=== PATIENT | female | born 1990 | race American Indian/Alaskan Native ===

== ENCOUNTER 2017-07-15 09:14 | Emergency (ER) | payer OTHER ==
[2017-07-15 09:23] VITALS: BP 92/61; O2SAT 100
[2017-07-15 09:24] VITALS: BMI 22.0
--- NOTE | 2017-07-15 09:53 | C.PDOC ---
History Of Present Illness 26 year old female, otherwise well, presents to the ED with complaints of constipation for approximately 3-4 days. Patient notes a pressure in the rectum with some bleeding when straining to poop, lower abdomen fullness, and discomfort. Patient states she eats a lot of fast food because she is on the go often and does not have time to drink enough water. Upon arrival to ED patient had a hard, large bowel movement and notes improvement of symptoms. Patient denies rectal bleeding with current bowel movement, dysuria, fever, chills, nausea, vomiting, or other complaints at this time. Time Seen by Provider: 07/15/17 09:29 Chief Complaint (Nursing): Abdominal Pain History Per: Patient History/Exam Limitations: no limitations Onset/Duration Of Symptoms: Days (3-4 days ) Current Symptoms Are (Timing): Better Radiation Of Pain To:: None Quality Of Discomfort: Pressure Associated Symptoms: Constipation. denies: Fever, Chills, Nausea, Vomiting, Diarrhea, Urinary Symptoms Exacerbating Factors: None Alleviating Factors: None Last Bowel Movement: Today Recent travel outside of the [place]: No Abnormal Vaginal Bleeding: No Past Medical History Reviewed: Historical Data, Nursing Documentation, Vital Signs Vital Signs: Last Vital Signs Temp 98 F 07/15/17 09:30 Pulse 73 07/15/17 09:30 Resp 20 07/15/17 09:30 BP 92/61 L 07/15/17 09:30 Pulse Ox 100 07/15/17 09:53 - Medical History PMH: Anemia Denies: Chronic Kidney Disease - [facility] Procedures MANUAL ASSIST DELIV NEC (02/11/15) PACKED CELL TRANSFUSION (02/11/15) Family History: States: Unknown Family Hx - Social History Hx Alcohol Use: No Hx Substance Use: No - Immunization History Hx Tetanus Toxoid Vaccination: No Hx Influenza Vaccination: No Hx Pneumococcal Vaccination: No Review Of Systems Constitutional: Negative for: Fever, Sweats Cardiovascular: Negative for: Chest Pain, Palpitations Respiratory: Negative for: Cough, Shortness of Breath Gastrointestinal: Positive for: Constipation, Other (mild rectal bleeding ). Negative for: Nausea, Vomiting, Abdominal Pain, Diarrhea Physical Exam - Physical Exam Appears: Non-toxic, No Acute Distress Skin: Warm, Dry, No Rash Head: Atraumatic, Normacephalic, No Tenderness Eye(s): bilateral: Normal Inspection, PERRL, EOMI Oral Mucosa: Moist Neck: Supple Chest: Symmetrical, No Deformity Cardiovascular: Rhythm Regular, No Murmur Respiratory: No Rales, No Rhonchi, No Wheezing, Other (clear to auscultation bilaterally ) Gastrointestinal/Abdominal: Soft, No Tenderness, No Distention, No Guarding, No Rebound Rectal: Deferred (by patient ) Back: No CVA Tenderness Extremity: Normal ROM, No Tenderness Neurological/Psych: Oriented x3 ED Course And Treatment O2 Sat by Pulse Oximetry: 100 (RA) Pulse Ox Interpretation: Normal Disposition Counseled Patient/Family Regarding: Diagnosis, Need For Followup - Disposition Disposition: HOME/ ROUTINE Disposition Time: 09:52 Condition: STABLE Instructions: Constipation (DC), High Fiber Diet (ED) Forms: [facility] (Northern Irish), General Discharge Instructions - POA Present On Arrival: None - Clinical Impression Clinical Impression: Constipation - Scribe Statement The provider has reviewed the documentation as recorded by the Scribe Lisa Emanuel All medical record entries made by the Scribe were at my direction and personally dictated by me. I have reviewed the chart and agree that the record accurately reflects my personal performance of the history, physical exam, medical decision making, and the department course for this patient. I have also personally directed, reviewed, and agree with the discharge instructions and disposition.
[2017-07-15 10:04] VITALS: PULSE 73; RESP 20; TEMP 98
== END 2017-07-15 10:00 | disposition home or self-care (01) ==
LOC: C.ER 09:14
DX: K59.00 Constipation, unspecified (principal)

== ENCOUNTER 2018-03-12 02:33 | Emergency (ER) | payer OTHER ==
[2018-03-12 02:33] VITALS: BMI 22.0
[2018-03-12 02:42] VITALS: RESP 16
[2018-03-12] MEDS ORDERED: Oxycodone/Acetaminophen 5/325 mg Tab PO STA (02:57)
[2018-03-12] MEDS ORDERED: Oxycodone/Acetaminophen 5/325 mg Tab ONE (03:04)
--- NOTE | 2018-03-12 03:18 | C.PDOC ---
History Of Present Illness 27 year old female with PMHx of wisdom tooth impaction presents to the ED c/o right lower toothache. Patient was seen by her dentist and was advised to have the wisdom tooth extracted but patient has not been able to make an appointment due to time constraints. Patient had been taking motrin 600 with some relief but today she woke up with throbbing pain which prompted the visit. Patient denies fever, chills, nausea, vomit, blurry vision, facial swelling, injury, fall, trauma. Time Seen by Provider: 03/12/18 02:48 Chief Complaint (Nursing): Dental Pain History Per: Patient History/Exam Limitations: no limitations Onset/Duration Of Symptoms: Days Current Symptoms Are (Timing): Still Present Quality: Positive for: "Pain" Recent travel outside of the [place]: No Additional History Per: Patient Past Medical History Reviewed: Historical Data, Nursing Documentation, Vital Signs Vital Signs: Last Vital Signs Temp 97.3 F L 03/12/18 03:36 Pulse 64 03/12/18 03:36 Resp 16 03/12/18 03:36 BP 104/68 03/12/18 03:36 Pulse Ox 99 03/12/18 03:36 - Medical History PMH: Anemia Denies: Chronic Kidney Disease Surgical History: No Surg Hx - [facility] Procedures MANUAL ASSIST DELIV NEC (02/11/15) PACKED CELL TRANSFUSION (02/11/15) Family History: States: Unknown Family Hx - Social History Hx Alcohol Use: Yes Hx Substance Use: No - Immunization History Hx Tetanus Toxoid Vaccination: No Hx Influenza Vaccination: No Hx Pneumococcal Vaccination: No Review Of Systems Constitutional: Negative for: Fever, Chills ENT: Positive for: Mouth Pain. Negative for: Nose Discharge, Nose Congestion, Mouth Swelling Respiratory: Negative for: Cough, Shortness of Breath Gastrointestinal: Negative for: Nausea, Vomiting Musculoskeletal: Negative for: Neck Pain Skin: Negative for: Rash Neurological: Negative for: Headache, Dizziness Physical Exam - Physical Exam Appears: Non-toxic, No Acute Distress Skin: Normal Color, Warm, Dry Head: Atraumatic, Normacephalic Eye(s): bilateral: Normal Inspection Ear(s): Bilateral: Normal Oral Mucosa: Moist Tongue: No Lesions Lips: No Lesions Teeth: Other (impacted right lower moalr ) Gingiva: No Swelling, No Bleeding Throat: Normal, No Erythema, No Exudate Neck: Normal ROM, No Midline Cervical Tenderness, Supple Neurological/Psych: Oriented x3, Normal Speech Gait: Steady ED Course And Treatment O2 Sat by Pulse Oximetry: 98 (ON RA) Pulse Ox Interpretation: Normal Progress Note: Plan: - Percocet 1 tab PO. Patient was advised to follow up with dentist. Disposition Counseled Patient/Family Regarding: Diagnosis, Need For Followup, Rx Given - Disposition Referrals: Dental office, Dentist [Other] Disposition: HOME/ ROUTINE Disposition Time: 03:15 Condition: STABLE Additional Instructions: Please follow up with dentist Continue motrin and may take tyl with codeine for severe pain Return to ER if worse Prescriptions: Acetaminophen/Codeine [Tylenol/Codeine 300 MG/30 MG] 1 - 2 ea PO Q6 PRN #10 tab PRN Reason: Pain, Moderate (4-7) Instructions: Impacted Tooth (DC) Forms: [facility] (Telugu) - Clinical Impression Clinical Impression: Impacted molar - PA / ANESTHESIOLOGY MEDICAL DOCTOR / Resident Statement MD/DO has reviewed & agrees with the documentation as recorded. - Scribe Statement The provider has reviewed the documentation as recorded by the Scribe Nikolay Aragon All medical record entries made by the Romaibbenjamin were at my direction and personally dictated by me. I have reviewed the chart and agree that the record accurately reflects my personal performance of the history, physical exam, medical decision making, and the department course for this patient. I have also personally directed, reviewed, and agree with the discharge instructions and disposition.
[2018-03-12 03:37] VITALS: BP 104/68; PULSE 64; TEMP 97.3
[2018-03-12 04:28] VITALS: O2SAT 98
== END 2018-03-12 03:37 | disposition home or self-care (01) ==
LOC: C.ER 02:33
DX: K01.1 Impacted teeth (principal)

== ENCOUNTER 2018-08-29 17:00 | Emergency (ER) | payer MEDICAID, OTHER ==
[2018-08-29 17:01] VITALS: BMI 22.0
[2018-08-29 17:30] VITALS: PULSE 100; RESP 20; TEMP 98.6; O2SAT 99
--- NOTE | 2018-08-29 18:11 | C.PDOC ---
History Of Present Illness 27 y/o female, , c/o vaginal pain x 3 days with burning sensation when urine touches skin. also feels bump in left groin. no fever, chills, nausea, abdominal pain. vomiting, diarrhea. vagina bleeding or discharge. pt reports unprotected sex with one partner, who has no complaints. Time Seen by Provider: 08/29/18 17:28 Chief Complaint (Nursing): Female Genitourinary Past Medical History Vital Signs: Last Vital Signs Temp 98.6 F 08/29/18 17:18 Pulse 100 H 08/29/18 17:18 Resp 20 08/29/18 17:18 BP Pulse Ox 99 08/29/18 17:18 - Medical History PMH: Anemia Denies: Chronic Kidney Disease - [facility] Procedures MANUAL ASSIST DELIV NEC (02/11/15) PACKED CELL TRANSFUSION (02/11/15) Family History: States: Unknown Family Hx - Social History Hx Alcohol Use: No Hx Substance Use: No - Immunization History Hx Tetanus Toxoid Vaccination: Yes Hx Influenza Vaccination: No Hx Pneumococcal Vaccination: No Review Of Systems Constitutional: Negative for: Fever, Chills Gastrointestinal: Negative for: Nausea, Vomiting, Abdominal Pain, Diarrhea Genitourinary: Positive for: Other (vaginal pain). Negative for: Vaginal Discharge, Vaginal Bleeding Physical Exam - Physical Exam Appears: Non-toxic, No Acute Distress Skin: Warm, Dry Lymphatic: Inguinal Node Tenderness (left groin ) Cardiovascular: Rhythm Regular Respiratory: Normal Breath Sounds Gastrointestinal/Abdominal: Soft, No Tenderness, No Distention Pelvic: No Vaginal Bleeding, Vaginal Discharge (mucus), No Cervical Motion Tenderness, Other (chaperoned by Jennifer: Left external labia: 2 cm coalesce vesicles; scattered vesicles on right labia and unroofed vesicles on perianal area. ) Extremity: Normal ROM (x4) Neurological/Psych: Oriented x3, Normal Speech, Normal Cognition, Normal Motor, Normal Sensation ED Course And Treatment O2 Sat by Pulse Oximetry: 99 (RA) Pulse Ox Interpretation: Normal Medical Decision Making Medical Decision Making: Plans: -- chlamydia -- lidocaine -- ibuprofen -- valtrex -- urine cx -- POC urine -- rapid plasma -- UA pt with vesicular lesions on labia; neg rpr, gc/chlamydia sent. discussed with patient need for further potpatient sti testing. will tx for herpes labialis with valtrex., Disposition Counseled Patient/Family Regarding: Studies Performed, Diagnosis, Need For Followup, Rx Given - Disposition Disposition: HOME/ ROUTINE Disposition Time: 20:26 Condition: GOOD Additional Instructions: Take valacyclovir and ibuprofen as directed. Follow up with gynecology and for further std testing. Recommend no sexual activity until this is cleared up and only safe protected sex. Rturn to ER for any worse symptoms. Prescriptions: Ibuprofen [Motrin Tab] 600 mg PO Q6 #40 tab Lidocaine 2% Gel [Xylocaine 2% (Uro-Jet)] 1 appl TP BID #3 gel Valacyclovir HCl [Valtrex] 1 gm PO BID #20 tablet Instructions: Genital Herpes Forms: [facility] (Portuguese), General Discharge Instructions - Clinical Impression Clinical Impression: Herpes labialis - PA / CROP PEST CONTROL SPECIALIST / Resident Statement MD/ has reviewed & agrees with the documentation as recorded. - Scribe Statement The provider has reviewed the documentation as recorded by the Jacobo Faulkner Do All medical record entries made by the Scribe were at my direction and personally dictated by me. I have reviewed the chart and agree that the record accurately reflects my personal performance of the history, physical exam, medical decision making, and the department course for this patient. I have also personally directed, reviewed, and agree with the discharge instructions and disposition.
[2018-08-29 18:37] LABS: SQUAMOUS EPITHIAL 2 /hpf (0-5); URINE BACTERIA RARE (<OCC); URINE BILIRUBIN NEGATIVE (NEGATIVE); URINE BLOOD 2+ (NEGATIVE); URINE CLARITY Clear (Clear); URINE COLOR Yellow (YELLOW); URINE GLUCOSE (UA) NORMAL (Normal); URINE LEUKOCYTE ESTERASE 1+ Leu/uL (Negative); URINE PROTEIN NEGATIVE (NEGATIVE)
[2018-08-29] MEDS ORDERED: Lidocaine/Prilocaine 2.5%-2.5% Cream (5 gm) TOP STA (18:44)
[2018-08-29] MEDS ORDERED: Lidocaine 2% Jelly (Uro-Jet) TOP STA (18:45)
[2018-08-29 20:20] VITALS: BP 117/77
== END 2018-08-29 20:37 | disposition home or self-care (01) ==
LOC: C.ER 17:00
DX: B00.1 Herpesviral vesicular dermatitis (principal)

== ENCOUNTER 2018-12-10 13:34 | Emergency (ER) | payer MEDICAID ==
[2018-12-10 13:35] VITALS: BMI 22.0
[2018-12-10 13:43] VITALS: BP 117/77; PULSE 104; RESP 20; TEMP 98.2; O2SAT 100
--- NOTE | 2018-12-10 14:01 | C.PDOC ---
History Of Present Illness 28 y/o female c/o body aches, subjective fever, nasal congestion and generalized weakness x 4 days. not taking anything at home. Time Seen by Provider: 12/10/18 13:50 Chief Complaint (Nursing): Flu-like Symptoms History Per: Patient History/Exam Limitations: no limitations Onset/Duration Of Symptoms: Days (4) Current Symptoms Are (Timing): Still Present Location Of Pain: Throat Associated Symptoms: Fever, Myalgias, Nasal Congestion. denies: Vomiting, Diarrhea Ear Symptoms: Bilateral: None Recent travel outside of the [place]: No Past Medical History Reviewed: Historical Data, Nursing Documentation, Vital Signs Vital Signs: Last Vital Signs Temp 98.2 F 12/10/18 13:40 Pulse 104 H 12/10/18 13:40 Resp 20 12/10/18 13:40 BP 117/77 12/10/18 13:40 Pulse Ox 100 12/10/18 13:40 - Medical History PMH: Anemia Denies: Chronic Kidney Disease - [facility] Procedures MANUAL ASSIST DELIV NEC (02/11/15) PACKED CELL TRANSFUSION (02/11/15) Family History: States: Unknown Family Hx - Social History Hx Alcohol Use: Yes Hx Substance Use: No - Immunization History Hx Tetanus Toxoid Vaccination: No Hx Influenza Vaccination: No Hx Pneumococcal Vaccination: No Review Of Systems Constitutional: Positive for: Fever, Malaise Eyes: Negative for: Pain ENT: Positive for: Nose Discharge, Nose Congestion. Negative for: Ear Pain, Throat Pain Cardiovascular: Negative for: Chest Pain Respiratory: Positive for: Cough. Negative for: Shortness of Breath Gastrointestinal: Negative for: Nausea, Vomiting, Abdominal Pain Genitourinary: Negative for: Dysuria Musculoskeletal: Negative for: Back Pain Skin: Negative for: Rash Neurological: Negative for: Weakness, Numbness Physical Exam - Physical Exam Appears: Non-toxic, No Acute Distress Skin: Warm, Dry Head: Atraumatic Eye(s): bilateral: Normal Inspection Ear(s): Bilateral: Normal Cardiovascular: Rhythm Regular, No Murmur Respiratory: No Decreased Breath Sounds, No Wheezing Gastrointestinal/Abdominal: Bowel Sounds, Soft, No Tenderness Extremity: Normal ROM, No Tenderness, No Swelling Neurological/Psych: Oriented x3, Normal Speech, Normal Cognition ED Course And Treatment O2 Sat by Pulse Oximetry: 100 Medical Decision Making Medical Decision Making: pt with flu like symptms x 4 days. afebrile here. treat symptomatically/ Disposition Counseled Patient/Family Regarding: Diagnosis, Need For Followup, Rx Given - Disposition Referrals: Esau Skinner, RHYS, HUMAN DEVELOPMENT PROFESSOR [Advanced Practice Nurse] - Disposition: HOME/ ROUTINE Disposition Time: 14:17 Condition: GOOD Additional Instructions: Drink increased fluids. Tylenol or Motrin for pain or fever. Increased best rest. Follow up with Dr Skinner in next few days. Instructions: Flu, Adult (DC) Forms: [facility] (Italian), General Discharge Instructions - Clinical Impression Clinical Impression: Influenza-like illness
== END 2018-12-10 14:25 | disposition home or self-care (01) ==
LOC: C.ER 13:34
DX: J11.1 Influenza due to unidentified influenza virus with other respiratory manifestations (principal)